=== PATIENT | male | born 1950 | race Caucasian/White ===

== ENCOUNTER → 2016-11-29 | Outpatient (CLI) | payer OTHER ==
[~2016-11-29] MED LIST: LEUP30IN3 IM; MAGN400T6 PO; METO25TA56 PO; THIA50TA3 PO
[2016-11-29 12:00] LABS: ALT/SGPT 67 U/L (12-78); AST/SGOT 37 U/L (15-37); BLOOD UREA NITROGEN 15 mg/dl (7-18); BUN/CREATININE RATIO 18.2 (10-20); CALCIUM 9.1 mg/dl (8.5-10.1); CARBON DIOXIDE 28 mmol/L (21-32); CHLORIDE 107 mmol/L (98-107); CREATININE 0.81 mg/dl (0.60-1.40); GLUCOSE 105 mg/dl (70-99); POTASSIUM 4.1 mmol/L (3.5-5.1); SODIUM 141 mmol/L (136-145)
[2016-11-29 12:05] LABS: ALKALINE PHOSPHATASE 65 U/L (45-117); CHOLESTEROL 139 mg/dl (0-200); CHOLESTEROL/HDL RATIO 4.2; HDL CHOLESTEROL 33 mg/dl; LDL CHOLESTEROL CALCULATED 70 mg/dl; PROSTATE SPECIFIC ANTIGEN < 0.010 ng/ml (0.000-4.000); TRIGLYCERIDES 179 mg/dl (0-150); VERY LOW DENSITY LIPOPROT CALC 36 mg/dl
[2016-11-29 12:12] LABS: ESTIMATED AVERAGE GLUCOSE 120 mg/dl; HA1C FLAG Normal (Normal)
--- NOTE | 2016-12-04 11:00 | CODING QUERY MEDICAL NECESSITY ---
CQSUPPORTING DIAGNOSIS NEEDED A supporting diagnosis is required for the test/procedure performed on this patient in order for us to be reimbursed by the patient's insurance. Please provide a supporting diagnosis for the following test/procedure listed below next to the test name along with your signature. *If there is no additional diagnosis for this patient that would support the following test/procedure please document that below next to the test/procedure. Test(s)/Procedure(s) that require a supporting diagnosis: KELLY 11/29/16 GLYCATED HEMOGLOBIN TEST Provider Signature: Date: Thank you Roseann Buchanan Health Information Management Once completed, please kindly fax back to [phone] For questions please call [phone]
== END | disposition home or self-care (01) ==
LOC: C.LAB 10:21
PROVIDERS: ATTEND Family Medicine
DX: C61 Malignant neoplasm of prostate (principal); R73.03 Prediabetes; I25.10 Atherosclerotic heart disease of native coronary artery without angina pectoris; E78.00 Pure hypercholesterolemia, unspecified

== ENCOUNTER → 2017-02-20 | Outpatient (CLI) | payer OTHER ==
--- NOTE | 2017-02-20 13:23 | DIAGNOSTIC IMAGING REPORT ---
LEFT CLAVICLE 2 VIEWS HISTORY: Left clavicle pain. COMPARISON: None. FINDINGS: There is no fracture or dislocation. Soft tissues are unremarkable. Mild AC joint arthrosis. IMPRESSION: No fractures within the left clavicle. Electronically signed by: Jeremiah Dixon M.D. 02/20/2017 1:21 PM Dictated Date/Time: 02/20/2017 1:20 PM
== END | disposition home or self-care (01) ==
LOC: C.RAD 12:56
PROVIDERS: ATTEND Physician Assistant
DX: M89.8X1 Other specified disorders of bone, shoulder (principal)

== ENCOUNTER → 2017-07-10 | Outpatient (CLI) | payer OTHER ==
[2016-07-05 14:12] VITALS: BP 112/76; PULSE 78
[~2017-07-10] MED LIST changes: +ASPCH81X PO; +PRAV20TA PO
[2017-07-10 13:30] VITALS: BP 125/82; PULSE 80; TEMP 36.9; O2SAT 94
--- NOTE | 2017-07-10 14:03 | Radiation Oncology Follow-Up ---
Radiation Oncology Follow-Up Date of Visit Jul 10, 2017. Reason For Visit Annual follow up Radiation Completion Date Hormonal therapy;Seed implant 09/23/14;IMRT 12/29/14 Diagnosis (1) Prostate cancer Status: Resolved Onset Date: 04/15/2013 Location: both lobes of the prostate Histology Subtype: adenocarcinoma Stage: ll Permanent Comment: Rising PSA Clinical stage TIc, [place] 4+4, biopsy stage TIIc Initiation of hormonal suppression Status post seed implant with cesium 131 completed 09/23/2013, 56 seeds were placed, dose 8500 cGy Status post completion of IMRT/IGRT completed 12/29/2013 received 5000 cGy Last Edited By: Natalie Lynn on Jul 08, 2015 13:43 Interim History He has been doing well from urinary standpoint. He gave an AUA score of 2. He completed and expanded prostate cancer index composite for clinical practice and gave a score of one of 12 and urinary incontinence symptoms. He gave a score of one of 12 urinary irritation symptoms. He gave a score of 3 of 12 and bowel symptoms. He gave a score of 8 of 12 and sexual symptoms. He gave a score of 3 of 12 and hormonal vitality symptoms. His total was 16 of 60. He does not require any medication to help with urination. He had no complaints of rectal bleeding. He has had recheck PSAs. He had a PSA 11/29/2016 that was less than 0.010. Allergies Coded Allergies: No Known Allergies (Unverified , 09/21/14) Home Medications Scheduled Aspirin (Aspirin Chewable), 81 MG PO DAILY Metoprolol Tartrate (Lopressor) (Lopressor), 12.5 MG PO DAILY Pravastatin (Pravachol ), 10 MG PO HS Review of Systems Gastrointestinal: Symptoms: Constipation, Rectal Bleeding GI Comments: Occass. constipation - manageable at home;No fiber supplements; Oral: Symptoms: No Problems Other Oral Symptoms: Some rectal spotting w/BMs; Respiratory: Symptoms: SOB With Exertion Other Respiratory: Relates this to age and weight; Urinary: Symptoms: WNL Comments: Urgency persists but is improving;Dripping at end of void; Skin: Symptoms: No Problems Physical Exam Vital Signs Date Time Temp Pulse Resp B/P (MAP) Pulse Ox O2 Delivery O2 Flow Rate FiO2 07/10/17 13:30 36.9 80 20 125/82 94 Fatigue: None General Appearance: no apparent distress Eyes: normal inspection, EOMI ENT: normal ENT inspection, hearing grossly normal Respiratory/Chest: lungs clear, no respiratory distress, no accessory muscle use Cardiovascular: regular rate, rhythm, no gallop, no murmur Abdomen: non tender, soft, no organomegaly Anal / Rectum: Deferred. He is seen Dr. Castillo in 2 weeks. Extremities: no pedal edema Neurologic/Psychiatric: no motor/sensory deficits, alert, normal mood/affect Skin: warm/dry Pain Management Patient Reports Pain: No Side: Bilateral Patient Preferred Pain Scale: 0 - 10 Initial Pain Intensity: 0.0 Pain Management Plan He denies pain therefore requires no pain management. Laboratory Laboratory Results: were reviewed, and pertinent findings noted below Laboratory Comments: Test 07/10/17 14:05 Prostate Specific Antigen 0.016 ng/ml (0.000-4.000) Pathology Pathology Results: not applicable Imaging Imaging Studies: not applicable Assessment & Plan Plan: We did obtain a PSA today. He'll be notified as to results. He stated that he has seen Dr. Castillo in November. He received a call and is scheduled to see him in 2 weeks. He does want to keep that appointment. We will try to get him back on a alternating schedule. We asked him to return to our office in 1 year. He'll likely see Dr. Castillo again in 6 months. Total Time In Follow-Up I spent 15 minutes speaking to the patient and performing examination. I spent 15 minutes reviewing information in completing this note. Copy To Prakash Neff M.D.; Aime Castillo M.D.
== END | disposition home or self-care (01) ==
LOC: C.ONC 13:18
PROVIDERS: ATTEND Physician Assistant Medical
DX: Z08 Encounter for follow-up examination after completed treatment for malignant neoplasm (principal); Z92.3 Personal history of irradiation; Z85.46 Personal history of malignant neoplasm of prostate

== ENCOUNTER → 2017-11-09 | Outpatient (CLI) | payer OTHER ==
[~2017-11-09] MED LIST changes: -LEUP30IN3 IM; -MAGN400T6 PO; -THIA50TA3 PO
[2017-11-09 12:26] LABS: BASO % 0.5 %; BASO ABS # 0.04 K/uL (0-0.2); EOS % 0.6 %; EOS ABS # 0.05 K/uL (0-0.5); HEMATOCRIT 44.4 % (42-52); HEMOGLOBIN 15.7 g/dL (14.0-18.0); IG# 0.01 K/uL (0.00-0.02); LYMPH % 16.1 %; LYMPH ABS # 1.26 K/uL (1.2-3.4); MEAN CELL VOLUME 91.2 fL (80-100); MEAN CORPUSCULAR HEMOGLOBIN 32.2 pg (25-34); MEAN CORPUSCULAR HGB CONC 35.4 g/dl (32-36); MEAN PLATELET VOLUME 10.4 fL (7.4-10.4); MONO % 9.1 %; MONO ABS # 0.71 K/uL (0.11-0.59); NEUT % 73.6 %; NEUT ABS # 5.76 K/uL (1.4-6.5); PLATELET COUNT 239 K/uL (130-400); RED CELL DISTRIBUTION WIDTH CV 13.8 % (11.5-14.5); RED CELL DISTRIBUTION WIDTH SD 45.9 fL (36.4-46.3); WHITE BLOOD COUNT 7.83 K/uL (4.8-10.8)
[2017-11-09 12:47] LABS: ALBUMIN 3.8 gm/dl (3.4-5.0); ALT/SGPT 48 U/L (12-78); AST/SGOT 26 U/L (15-37); BLOOD UREA NITROGEN 19 mg/dl (7-18); CARBON DIOXIDE 28 mmol/L (21-32); CHOLESTEROL 135 mg/dl (0-200); CREATININE 0.94 mg/dl (0.60-1.40); GLUCOSE 113 mg/dl (70-99); POTASSIUM 4.3 mmol/L (3.5-5.1); SODIUM 139 mmol/L (136-145)
[2017-11-09 12:49] LABS: ALKALINE PHOSPHATASE 56 U/L (45-117); LDL CHOLESTEROL CALCULATED 66 mg/dl; TOTAL PROTEIN 7.4 gm/dl (6.4-8.2)
== END | disposition home or self-care (01) ==
LOC: C.LAB 10:12
PROVIDERS: ATTEND Neuromusculoskeletal Medicine & OMM
DX: E78.00 Pure hypercholesterolemia, unspecified (principal); I25.10 Atherosclerotic heart disease of native coronary artery without angina pectoris